=== PATIENT | male | born 1990 | race Caucasian/White ===

== ENCOUNTER 2019-09-07 17:38 | Outpatient (CLI) | payer SELFPAY | END 2019-09-07 17:39 | disposition home or self-care (01) | LOC: COV 17:38 | PROVIDERS: ATTEND Family Medicine | DX: R05 Cough (principal); R06.02 Shortness of breath; R06.2 Wheezing; M79.10 Myalgia, unspecified site; R53.83 Other fatigue; J02.9 Acute pharyngitis, unspecified; Z20.828 Contact with and (suspected) exposure to other viral communicable diseases | CPT/HCPCS: 81599 ==